=== PATIENT | female | born 1955 | race Caucasian/White ===

== ENCOUNTER 2017-10-17 18:22 | Inpatient (IN) | payer OTHER ==
[~2017-10-17] VITALS: Ht 170.2 cm; Wt 79.8 kg
[2017-10-17 18:31] VITALS: BP 161/77
[2017-10-17] MEDS ORDERED: UNICOMPLEX M TA1 TA1 PO (18:35)
[2017-10-17] MEDS ORDERED: MAGOX 400400 MG PO (18:36)
[2017-10-17 19:48] LABS: ABSOLUTE BASOPHILS 0.1 thou/uL (0.0-0.2); ABSOLUTE LYMPHOCYTES 1.2 thou/uL (0.8-5.3); ABSOLUTE MONOCYTES 0.7 thou/uL (0.0-1.2); ABSOLUTE NEUTROPHILS 8.2 thou/uL (1.6-8.1); BASOPHILS 0.5 %; EOSINOPHILS 0.4 %; HEMATOCRIT 37.8 % (37.0-47.0); HEMOGLOBIN 13.1 gm/dL (12.0-15.0); LYMPHOCYTES 11.5 %; MCH 33.8 pg (26.0-34.0); MCHC 34.7 g/dL (28.0-37.0); MCV 97.3 fL (80.0-100.0); MONOCYTES 6.9 %; MPV 7.9 fl. (7.2-11.1); NUCLEATED RBCS 0 /100WBC; PLATELET COUNT* 284 thou/uL (150-400); POLYS 80.7 %; RBC 3.88 mil/uL (4.20-5.00); RDW-CV 12.4 % (10.5-14.5); WBC 10.2 thou/uL (4.0-11.0)
[2017-10-17 19:58] LABS: CALCIUM 9.3 mg/dL (8.5-10.1); CREATININE 0.9 mg/dL (0.6-1.3)
[2017-10-17 20:04] LABS: ALBUMIN 3.6 g/dL (3.4-5.0); TOTAL BILIRUBIN 0.5 mg/dL (<0.1-1.0); TOTAL PROTEIN 7.7 g/dL (6.4-8.2)
[2017-10-17 20:20] LABS: URINE BILIRUBIN NEGATIVE (Negative); URINE BLOOD NEGATIVE (Negative); URINE CLARITY CLEAR; URINE COLOR YELLOW; URINE GLUCOSE-RANDOM NEGATIVE (Negative); URINE KETONES NEGATIVE (Negative); URINE LEUKOCYTES NEGATIVE (Negative); URINE NITRITE NEGATIVE (Negative); URINE PROTEIN NEGATIVE (Negative); URINE SPECIFIC GRAVITY <= 1.005 (1.005-1.030); URINE UROBILINOGEN 0.2 E.U./dl (0.2-1.0)
[2017-10-17 21:00] VITALS: BP 130/66
[2017-10-18] VITALS: BP 125/66
[2017-10-18 04:03] VITALS: BP 107/63
[2017-10-18 04:10] LABS: HEMATOCRIT 38.2 % (37.0-47.0); MCH 33.6 pg (26.0-34.0); MCV 98.9 fL (80.0-100.0); MPV 8.7 fl. (7.2-11.1); RBC 3.87 mil/uL (4.20-5.00); RDW-CV 12.7 % (10.5-14.5); WBC 9.8 thou/uL (4.0-11.0)
[2017-10-18 04:45] LABS: CALCIUM 8.5 mg/dL (8.5-10.1); CREATININE 0.9 mg/dL (0.6-1.3); POTASSIUM 4.3 mmol/L (3.5-5.1)
[2017-10-18 09:00] VITALS: BP 106/58
--- NOTE | 2017-10-18 13:04 | OP ---
[address] [address] OPERATIVE REPORT Name: YASMINECAINLOU MILLAN Room: [address] IN M.R.#: [id number] Admission: 10/17/17 Attend Phys: Raine Webb DO Discharge: Date of : 55 Report #: [id number] THIS REPORT FOR: //name// CC: Raine Stewart DATE OF SERVICE: 10/17/2017 PREOPERATIVE DIAGNOSIS: Acute appendicitis. POSTOPERATIVE DIAGNOSIS: Perforated appendicitis with localized peritonitis. FINDINGS: Hugely distended and inflamed appendix with a clear perforation just distal to the base. There are multiple appendicoliths identified including one, which had become dislodged through the perforation. SURGEON: Raine Webb DO COSURGEON: Ben Torres DO, PGY2 CLINICAL NURSING PROFESSOR: MS [id number]. PROCEDURE PERFORMED: Laparoscopic appendectomy. ANESTHESIA: General endotracheal and local. DRAINS: 19-Kittitian DAVID drain in the pelvis and the right lower quadrant. SPECIMEN: Appendix. CONDITION: Stable. DISPOSITION: PACU to the floor. IMPLANTS: None. HISTORY OF PRESENT ILLNESS: The patient is a very pleasant 61-year-old female who presented to the ED today with a complaint of right lower quadrant abdominal pain of several days' duration. This was associated with nausea, but no vomiting. Pain abruptly worsened today and she presented to the ER. She was found on CT scan to have appendicitis. She was then consented for laparoscopic appendectomy, possible open. Risks discussed included bleeding, infection, pain, scar formation, injury to bowel or bladder, hernia at the incision sites, need for an open procedure, and risks of general anesthesia. The patient understood these risks and elected to proceed. [address] [address] OPERATIVE REPORT Name: ANJEL UNDERWOOD Room: [address] IN M.R.#: [id number] Admission: 10/17/17 Attend Phys: Raine Webb DO Discharge: Date of : 55 Report #: [id number] DESCRIPTION OF PROCEDURE: The patient was brought to the operating room. She was laid supine on the operating room table. SCDs were placed on bilateral lower extremities. Ancef 2 grams were given in the perioperative period. General endotracheal anesthesia was induced by anesthesia without difficulty. Abdomen was prepped and draped in standard sterile fashion. Timeout was performed to verify the patient and procedure. The 10 mL of 0.5% Marcaine were injected in the infraumbilical area. Incision was made with 11 blade. Cautery was used for hemostasis. S retractors were used to visualize the fascia. Fascia was grasped and elevated between 2 Kochers. Fascia was incised using cautery. Peritoneum was bluntly entered using a Vy clamp. Finger was swept into the abdomen to assure that there were no henrry-incisional adhesions, none were identified. Two stitches of 0 Vicryl placed on the fascia. Chata trocar was introduced and secured with 0 Vicryl stitches. Abdomen was insufflated. The patient was placed head down. Camera was introduced and a brief anterior abdominal exploration was undertaken with findings of an acutely inflamed appendix with some purulent fluid in the right lower quadrant. Two 5 mm trocars were introduced, one in the left lower quadrant, one in the suprapubic area. The patient was then placed left side down. Cecum was grasped and gently rotated towards the midline. A huge inflammatory mass was sitting on top of the cecum, which was found to be the appendix. Using very gentle blunt dissection, the appendix was gently elevated off the cecum. Once the base could be visualized, we were then staring at a fairly significant perforation in the appendix and there was an appendicolith which was free floating in the pelvis. There did appear to be approximately 1 cm of healthy base proximal to the perforation. Using very gentle blunt dissection with the suction lines tender, this remaining portion of the base of the appendix was gently elevated. A 5 mm LigaSure was then introduced and the mesentery of the appendix was serially clamped and ligated until we reached the base of the appendix. A 45 mm purple load Endo-NABIL stapler was introduced and the base of the appendix was gently clamped and stapled without difficulty. A small portion of the cecum was taken to make sure that we had a clean transection. There was a small portion of mesentery still remaining. This was taken with a 45 mm white load stapler. Specimen was then placed within an EndoCatch bag. The free floating appendicolith was also retrieved and placed within the EndoCatch bag. The right lower quadrant and the pelvis were then copiously irrigated until clear. Our staple lines were closely inspected. They appeared to be intact. There was no bleeding or leakage noted in the area of our staple lines. A 15-Kittitian Adrien DAVID drain was then introduced through our left lower quadrant trocar and was gently laid into the pelvis and in the right lower quadrant. Omentum was also then brought down to cover the area of our dissection. The patient was placed supine. Any remaining fluid in the abdomen was suctioned away. Our trocars were removed under direct visualization. There was no bleeding noted from the peritoneum. Abdomen was then completely desufflated. Chata trocar was removed and EndoCatch bag was removed after extending the fascial incision and skin [address] [address] OPERATIVE REPORT Name: ANJEL UNDERWOOD Room: [address] IN M.R.#: [id number] Admission: 10/17/17 Attend Phys: Raine Webb DO Discharge: Date of : 55 Report #: [id number] incision due to the excessive size of the appendix. Specimen was handed off. Kochers were placed on the fascia of our infraumbilical port. Previously placed 0 Vicryl stitches were removed and 0 Vicryl stitch was placed in [id number] fashion with excellent approximation of the fascia. An additional 10 mL of 0.5% Marcaine were injected in the fascia. This wound was closed in a layered fashion using deep and superficial stitches of 3-0 Vicryl in inverted interrupted fashion. All skin wounds were closed with 4-0 Monocryl. DAVID drain was sutured into place using a 3-0 nylon. A total of 30 mL of 0.5% Marcaine were used to anesthetize the wounds. Wounds were then cleansed and covered with Mastisol, Steri-Strips, 4 x 4s, and a Tegaderm. The patient was then allowed to awaken from anesthesia, was extubated and transported to the recovery room with no further difficulties. Counts were correct times 2 at the conclusion of the case. <ELECTRONICALLY SIGNED> By: Raine Webb DO 10/18/17 1304 [id number] [id number] Webb DO /jennyfer
[2017-10-18 15:32] VITALS: BP 108/62
[2017-10-18 20:00] VITALS: BP 119/69
[2017-10-19 00:38] VITALS: BP 114/63
[2017-10-19 04:35] VITALS: BP 122/66
[2017-10-19 07:16] LABS: HEMATOCRIT 33.4 % (37.0-47.0); HEMOGLOBIN 11.4 gm/dL (12.0-15.0); MCHC 34.3 g/dL (28.0-37.0); MCV 99.3 fL (80.0-100.0); MPV 8.1 fl. (7.2-11.1); RBC 3.36 mil/uL (4.20-5.00); RDW-CV 12.7 % (10.5-14.5); WBC 6.4 thou/uL (4.0-11.0)
[2017-10-19 07:27] LABS: ALBUMIN 2.5 g/dL (3.4-5.0); CALCIUM 7.8 mg/dL (8.5-10.1); CREATININE 0.9 mg/dL (0.6-1.3); MAGNESIUM 2.1 mg/dL (1.8-2.4); PHOSPHORUS* 2.4 mg/dL (2.5-4.9); POTASSIUM 3.6 mmol/L (3.5-5.1); TOTAL BILIRUBIN 0.4 mg/dL (<0.1-1.0); TOTAL PROTEIN 6.4 g/dL (6.4-8.2)
[2017-10-19 08:00] VITALS: BP 111/56
[2017-10-19 16:02] VITALS: BP 110/59
[2017-10-19 19:50] VITALS: BP 138/87
[2017-10-20] VITALS: BP 112/56
[2017-10-20 04:00] VITALS: BP 104/54
[2017-10-20 04:30] LABS: HEMATOCRIT 32.7 % (37.0-47.0); HEMOGLOBIN 11.3 gm/dL (12.0-15.0); MCHC 34.4 g/dL (28.0-37.0); MCV 98.8 fL (80.0-100.0); MPV 8.2 fl. (7.2-11.1); RBC 3.31 mil/uL (4.20-5.00); RDW-CV 12.4 % (10.5-14.5); WBC 5.8 thou/uL (4.0-11.0)
[2017-10-20 04:56] LABS: CALCIUM 8.1 mg/dL (8.5-10.1); CREATININE 0.8 mg/dL (0.6-1.3); POTASSIUM 3.8 mmol/L (3.5-5.1)
[2017-10-20 09:15] VITALS: BP 123/70
[2017-10-20 11:47] VITALS: BP 123/70
[2017-10-20] MEDS ORDERED: AUGMENTIN 875-1 EACH PO (11:53)
[2017-10-20] MEDS ORDERED: NORCO 5-325 TA1 EACH PO (11:54)
[2017-10-20 16:23] VITALS: BP 147/80
--- NOTE | 2017-12-07 15:08 | PATH ---
[address] [address] PATHOLOGY RPT PROCEDURE Name: ANJEL UNDERWOOD Room: [address] IN M.R.#: [id number] Admission: 10/17/17 Date of : 55 Discharge: 10/20/17 Report #: [id number] Path Case #: [id number] [facility] Accession Number: [id number] . 01 Material submitted: . APPENDIX . 01 Clinical history: . Acute appendicitis . 02 Diagnosis: Appendix: - Acute gangrenous appendicitis, periappendicitis and serositis. (MELANY/db; 10/21/17) LBQ/10/21/2017 . 02 Electronically signed: . Carlos Coffman MD, Pathologist NPI- [id number] . 01 Gross description: . Received in formalin, labeled " Anjel Underwood, appendix", is an appendix (8.0 cm length x 0.8 cm diameter) and attached mesoappendix (9.4 x 3.5 x 1.5 cm). The proximal resection margin is open with attached linear staple line measuring 1.5 cm in length with an average 0.2 cm width. The proximal serosa is inked black. The serosa is covered with cabrera-white exudate that extends to the adjacent mesoappendix. There is a possible perforation that is 1.1 cm from the proximal resection margin. The lumen is dilated and filled with dark brown, hemorrhagic soft fecal material and no discrete fecalith. The tip is fibrotic with no discrete mass. The wall has an average thickness of 0.2 cm. The henrry-appendiceal soft tissue has a yellow cut surface with the periphery hemorrhagic. . [employer] sections are submitted as follows: A1. Proximal resection margin with adjacent hemorrhagic mesoappendix A2. Possible perforation A3. Appendix to adjacent mesoappendix covered by cabrera-white exudate A4. Distal tip A5. Mesoappendix . ([facility]; 10/19/2017) SHS/SHS . 02 Pathologist provided ICD-10: K35.80 . 02 CPT . [id number] [place] [address] PATHOLOGY RPT PROCEDURE Name: ANJEL UNDERWOOD Room: [address] IN M.R.#: [id number] Admission: 10/17/17 Date of : 55 Discharge: 10/20/17 Report #: [id number] Path Case #: [id number] Specimen Comment: A courtesy copy of this report has been sent to Specimen Comment: [phone]. Performed at: [address], [place], [place] [id number] MD Seven Boyd MD Phone: [phone] Performed at: 02 [facility] [address], [place], [place] [id number] MD Carlos Coffman MD Phone: [phone]
== END 2017-10-20 18:00 | disposition home or self-care (01) | DRG 339 ==
LOC: M.ERS 18:22 → M.SUR 18:22 → M.TBA-ER 21:00 → M.ORTHSURG 21:00 → M.ERS 21:02 → M.ORTHSURG 23:44
PROVIDERS: Physician Assistant; ADMIT Surgery
PROC: 0DTJ4ZZ Resection of Appendix, Percutaneous Endoscopic Approach (ICD-10-PCS; principal; 2017-10-17)
DX: K35.3 Acute appendicitis with localized peritonitis (principal); E44.1 Mild protein-calorie malnutrition; Z82.49 Family history of ischemic heart disease and other diseases of the circulatory system; Z98.82 Breast implant status; Z79.899 Other long term (current) drug therapy

== ENCOUNTER → 2017-12-23 | Outpatient (CLI) | payer OTHER ==
[~2017-12-23] MED LIST: AUGMENTIN 875-1 EACH PO; MAGOX 400400 MG PO; NORCO 5-325 TA1 EACH PO; UNICOMPLEX M TA1 TA1 PO
== END ==
LOC: M.RAD 09:30
DX: Z12.31 Encounter for screening mammogram for malignant neoplasm of breast (principal)

== ENCOUNTER → 2020-12-17 | Outpatient (CLI) | payer MEDICARE, OTHER | LOC: M.RAD 10:26 | DX: Z12.31 Encounter for screening mammogram for malignant neoplasm of breast (principal) ==

== ENCOUNTER → 2020-12-26 | Outpatient (CLI) | payer MEDICARE, OTHER | LOC: M.RAD 08:47 | DX: M85.88 Other specified disorders of bone density and structure, other site (principal); Z78.0 Asymptomatic menopausal state ==

== ENCOUNTER → 2021-01-02 | Outpatient (CLI) | payer OTHER | LOC: M.CT 08:52 | DX: Z13.6 Encounter for screening for cardiovascular disorders (principal); I25.10 Atherosclerotic heart disease of native coronary artery without angina pectoris ==